=== PATIENT | female | born 1965 | race Caucasian/White ===

== ENCOUNTER 2018-02-04 02:52 | Emergency (ER) | payer BC, OTHER ==
--- NOTE | 2018-02-04 03:02 | PDOC ---
History of Present Illness <Donavan Willard - Last Filed: 02/04/18 04:31> - History of Present Illness Initial Comments: 02/04/18 03:18 The patient is a 52 year old female with a PMH of hyperglycemia (not currently on medications) who presents to the ED after a fall. Patient is actively intoxicated at time of presentation and states she lost her balance and fell backwards hitting her head. Patient denies any LOC. Was immediately ambulatory. Patient's partner at bedside assists with history. Notes patient drank 16 beers today which is a normal amount for her. Patient states she has no interest in alcohol treatment at this time. Patient denies chest pain, shortness of breath, abdominal pain, nausea/vomiting , diarrhea/constipation. <Kavita Blank - Last Filed: 02/04/18 05:13> - General Stated Complaint: INJURY,HEAD Time Seen by Provider: 02/04/18 03:01 Past History <Donavan Willard - Last Filed: 02/04/18 04:31> <Kavita Blank - Last Filed: 02/04/18 05:13> - Past Medical History Allergies/Adverse Reactions: Allergies Allergy/AdvReac Type Severity Reaction Status Date / Time No Known Allergies Allergy Verified 02/04/18 03:42 Review of Systems - Review of Systems Constitutional: No: Chills, Fever HEENTM: No: Blurred Vision, Double Vision Respiratory: No: Cough, Shortness of Breath Cardiac (ROS): No: Chest Pain, Lightheadedness, Palpitations ABD/GI: No: Constipated, Diarrhea, Nausea, Vomiting <Kavita Blank - Last Filed: 02/04/18 05:13> *Physical Exam - Vital Signs Last Vital Signs Temp Pulse Resp BP Pulse Ox 97.8 F 104 H 19 156/95 97 02/04/18 03:00 02/04/18 03:00 02/04/18 03:00 02/04/18 03:00 02/04/18 03:00 <Donavan Willard - Last Filed: 02/04/18 04:31> - Physical Exam General Appearance: Yes: Nourished, Appropriately Dressed, Alcohol on Breath HEENT: positive: EOMI, TAYLOR, Other (4 cm linear abrasion with surrounding hematoma on occiput) Neck: positive: Trachea midline, Supple Respiratory/Chest: positive: Lungs Clear, Normal Breath Sounds Cardiovascular: positive: S1, S2. negative: Edema, Murmur Gastrointestinal/Abdominal: positive: Normal Bowel Sounds, Soft Extremity: positive: Normal Capillary Refill, Normal Inspection Integumentary: positive: Normal Color, Dry, Warm Neurologic: positive: rv mechanic II-XII NML intact, Fully Oriented, Alert <Kavita Blank - Last Filed: 02/04/18 05:13> Medical Decision Making - Medical Decision Making 02/04/18 03:24 52 year old female s/p fall with head trauma. Actively intoxicated at presentation. Tachycardic, hypertensive. Will CT head and PO fluids. Reassess. 02/04/18 05:[address] negative for acute bleed. Tachycardia resolved. Will administer Boostrix and d/c home with return precautions. I discussed the physical exam findings, ancillary test results and final diagnoses with the patient. I answered all of the patient's questions. The patient was satisfied with the care received and felt comfortable with the discharge plan and treatment plan. The patient will return to the Emergency Department with any new, persistent or worsening symptoms. <Kavita Blank - Last Filed: 02/04/18 05:13> *DC/Admit/Observation/Transfer <Mery Willardan - Last Filed: 02/04/18 04:31> <Kavita Blank - Last Filed: 02/04/18 05:13> Diagnosis at time of Disposition: Fall - Discharge Dispostion Disposition: HOME Condition at time of disposition: Fair - Patient Instructions Printed Discharge Instructions: DI for Closed Head Injury Additional Instructions: Apply antibiotic ointment to your wound twice daily to prevent infection. Avoid drinking to excess. If you experience persistent bleeding, pain, swelling, headache, vomiting, or any other concerning symptoms, return to the ER immediately. Otherwise, follow up with your primary doctor within 48 hours.
[2018-02-04] MEDS ORDERED: SODIUM CHLORIDE 0.9% 500 ML INFUS.BAG IV ONE (03:24)
[2018-02-04 03:42] VITALS: TEMP 97.8; BMI 24.8
--- NOTE | 2018-02-04 04:14 | PDOC ---
Attending Attestation - Resident Resident Name: Kavita Blank - ED Attending Attestation I have performed the following: I have examined & evaluated the patient, The case was reviewed & discussed with the resident, I agree w/resident's findings & plan, Exceptions are as noted - HPI HPI: 02/04/18 04:05 52 F presenting with head injury after tripping and falling. Pt endorses having several drinks today. In ED, she is mildly intoxicated but ambulating with steady gait, accompanied by friend. Pt denies JIMENEZ/N/V. Denies neck pain. Denies any other injury. Denies CP/SOB/palpitations/lightheadedness. - Physicial Exam PE: 02/04/18 04:06 "GENERAL: Awake, alert, and fully oriented, in no acute distress. HEAD: + abrasion and hematoma to occiput, no laceration EYES: PERRLA, EOMI, sclera anicteric, conjunctiva clear ENT: Auricles normal inspection, hearing grossly normal, nares patent, oropharynx clear without exudates. Moist mucosa NECK: Nontender, no stepoffs, Normal ROM, supple, no lymphadenopathy, JVD, or masses LUNGS: Breath sounds equal, clear to auscultation bilaterally. No wheezes, and no crackles HEART: Regular rate and rhythm, normal S1 and S2, no murmurs, rubs or gallops ABDOMEN: Soft, nontender, normoactive bowel sounds. No guarding, no rebound. No masses EXTREMITIES: Normal range of motion, no edema. No clubbing or cyanosis. No cords, erythema, or tenderness NEUROLOGICAL: Cranial nerves II through XII intact. 5/5 strength and sensation in all extremities, Normal speech, normal gait, normal cerebellar function SKIN: Warm, Dry, normal turgor, no rashes or lesions noted." - Medical Decision Making 02/04/18 04:14 52 F with head injury after falling while drunk. Only mildly intoxicated at this time. Ambulatory with steady gait, and accompanied by friend. - CT head 02/04/18 04:31 CT head unremarkable Pt is well appearing, with normal vitals. Clinically stable for DC at this time. I discussed the physical exam findings, ancillary test results and final diagnoses with the patient. I answered all of the patient's questions. The patient was satisfied with the care received and felt comfortable with the discharge plan and treatment plan. The patient agrees to follow up with the primary care physician within 24-72 hours.
[2018-02-04] MEDS ORDERED: DIPHTH,PERTUSS(ACELL),TET 0.5 ML DISP.SYRIN IM ONE (04:23)
[2018-02-04 04:45] VITALS: BP 158/57; PULSE 87
== END 2018-02-04 05:20 | disposition home or self-care (01) ==
LOC: JER 02:52
PROC: 3E0234Z Introduction of Serum, Toxoid and Vaccine into Muscle, Percutaneous Approach (ICD-10-PCS; principal; 2018-02-04)
DX: S00.01XA Abrasion of scalp, initial encounter (principal); S00.03XA Contusion of scalp, initial encounter; F10.120 Alcohol abuse with intoxication, uncomplicated; W18.39XA Other fall on same level, initial encounter; Y93.89 Activity, other specified; Y92.89 Other specified places as the place of occurrence of the external cause; Y99.8 Other external cause status
CPT/HCPCS: 70450-TC; 90715; 99281-25

== ENCOUNTER 2022-04-30 23:53 | Emergency (ER) | payer BC, OTHER ==
[2022-05-01 00:04] VITALS: PULSE 98; RESP 18; TEMP 98.8; BMI 22.3
[2022-05-01] MEDS ORDERED: cloNIDine HCL 0.1 MG TABLET PO ONE (01:03)
[2022-05-01] MEDS ORDERED: cloNIDine HCL 0.1 MG TABLET ONE (01:05)
[2022-05-01 01:39] VITALS: BP 181/88
== END 2022-05-01 01:41 | disposition home or self-care (01) ==
LOC: FER 23:53
DX: I10 Essential (primary) hypertension (principal); F41.9 Anxiety disorder, unspecified
CPT/HCPCS: 93005; 99283-25